=== PATIENT | female | born 1975 | race Two or more races ===

== ENCOUNTER → 2017-07-13 | Outpatient (REF) | payer BC ==
[~2017-07-13] MED LIST: /MOM400 PO; ACET50TA PO; ANUS2.5C2 TOP; DOCU10ELUD PO; IBUP600T26 PO
== END ==
LOC: M SFHCLERA 14:59
PROVIDERS: ATTEND Nurse Practitioner Family
DX: Z20.818 Contact with and (suspected) exposure to other bacterial communicable diseases (principal)

== ENCOUNTER → 2018-11-07 | Outpatient (REF) | payer BC | LOC: M SFHCLERA 12:12 | PROVIDERS: ATTEND Physician Assistant | DX: R30.0 Dysuria (principal) ==